=== PATIENT | female | born 1950 | race Caucasian/White ===

== ENCOUNTER 2016-06-10 12:37 | Emergency (ER) | payer OTHER ==
[~2016-06-10 12:37] MED LIST: ALBUTEROL HFA60 DOSE IN; ASPIRIN81 M1 PO; ATENOLOL25 MG PO; ATORVASTATIN CA20 MG PO; AZULFIDINE500 MG PO; BENZONATATE100 MG PO; DICYCLOMINE HCL20 MG PO; DUONEB IN; ESTRADIOL2 MG PO; FUROSEMIDE20 MG PO; KLOR-CON 1010 MEQ PO; OMEPRAZOLE20 MG PO; XANAX0.5 MG PO; [UNRECOGNIZED DRUG - SUPPLY]
--- NOTE | 2016-06-10 14:05 | DIAGNOSTIC IMAGING REPORT ---
PROCEDURE: XR CHEST 2 VIEW INDICATION: HYPOXIA AND HX OF COPD TECHNIQUE: PA and lateral views. COMPARISON: Chest 12/23/2014 and 01/22/2011 FINDINGS: New right lower lobe infiltrate. The left lung base is unchanged from 2010. Heart and mediastinum are normal. Thorax is normal. IMPRESSION: 1. New right lower lobe infiltrate. Results discussed with Dr. Venkatesh Hicks at 02:00 p.m.
--- NOTE | 2016-06-10 16:45 | DIAGNOSTIC IMAGING REPORT ---
PROCEDURE: CT ABDOMEN/PELVIS W/O CONTRAST INDICATION: ABDO PAIN, HEMATURIA, TECHNIQUE: Noncontrast axial images were obtained of the entire abdomen and pelvis with sagittal and coronal reformations. COMPARISON: None. FINDINGS: ABDOMEN: 1.5 mm proximal left ureteral calculus with mild left hydronephrosis. There are two nonobstructing left renal calculi (two and 3 mm). Mild bibasilar scarring. Heart size is normal. Cholecystectomy. Liver, pancreas, spleen and left adrenal gland are normal. 1.9 cm right adrenal mass measures -11 Hounsfield units. Mild atherosclerosis of the aorta. Mild descending colon diverticulosis. PELVIS: Normal appendix. Mild to moderate sigmoid diverticulosis. Hysterectomy. 3 cm left ovarian cyst. Normal bladder. Moderate degenerative changes of the spine . IMPRESSION: 1. 1.5 mm proximal left ureteral calculus with mild left hydronephrosis 2. Nonobstructing left renal calculi 3. Cholecystectomy and hysterectomy 4. 1.9 cm right adrenal adenoma 5. 2 cm left ovarian cyst 6. Diverticulosis 7. Results discussed with Dr. Parrish All CT scans at this facility use dose modulation, iterative reconstruction, and/or weight-based dosing when appropriate to reduce radiation dose to as low as reasonably achievable.
--- NOTE | 2016-06-10 17:09 | ED CLINICAL REPORT ---
Clinical Report - Physicians/Mid Levels [facility] [address] [place] [address] 06/10/2016 12:38 Patient: GABRIEL ESPINAL Time Seen: 1303. Arrived- By private vehicle. Historian- patient. HISTORY OF PRESENT ILLNESS Chief Complaint: ABDOMINAL PAIN. This started today and is still present (unchanged). It was abrupt in onset and has been constant but is not gone now. At its maximum, severity described as moderate. When seen in the E.D., severity described as moderate. Modifying factors. Not worsened by anything. Not relieved by anything. No radiation. It is described as located in the left upper quadrant and the left flank. No nausea, loss of appetite, vomiting or diarrhea. No additional abdominal pain. No recent travel. Similar symptoms previously: None. Recent medical care: Not recently seen/assessed. REVIEW OF SYSTEMS No chest pain or skin rash. All systems otherwise negative, except as recorded above. PAST HISTORY See nurses notes. Medications: Atorvastatin Calcium Oral 20 mg, daily. Atenolol Oral 50 mg, daily. Albuterol Sulfate HFA Inhalation (Aerosol Solution 108 (90 Base) mcg/act), 4x a day as needed. ALPRAZolam Oral 0.5 mg, 2x a day as needed. Benzonatate Oral 100 mg, 3x a day. Comp-Air Elite Comp Neb System. Dicyclomine HCl Oral 20 mg, 2x a day. Estradiol Oral (Tablet 2 mg) 1 tablet. Furosemide Oral 20 mg, 2x a day as needed. Ipratropium-Albuterol Inhalation (Solution 0.5-2.5 (3) mg/3mL). Klor-Con M10 Oral (Tablet Extended Release 10 meq) 1 tablet (takes with Lasix, when she takes the Lasix). Omeprazole Oral 20 mg, 2x a day. SulfaSALAzine Oral 500 mg, 2x a day. Allergies: Unknown. SOCIAL HISTORY Never smoker. No alcohol use or drug use. No recent travel. Is a local resident. ADDITIONAL NOTES The nursing notes have been reviewed. PHYSICAL EXAM Vital Signs: 06/10/2016 12:43 BP: 140/54. HR: 62. RR: 18. O2 saturation: 86%. Temp: 97.6 F. Pain level now: 0/10. Oxygen saturation normal. Appearance: Alert. Oriented X3. No acute distress. (nontoxic). Eyes: Pupils equal, round and reactive to light. Eyes normal inspection. ENT: Ears normal. Nose normal. Pharynx normal. Neck: Normal inspection. Neck supple. CVS: Normal heart rate and rhythm. Heart sounds normal. Pulses normal. Respiratory: No respiratory distress. Breath sounds normal. Chest nontender. No rales, rhonchi or wheezes. Abdomen: Soft and nontender. Bowel sounds normal. No organomegaly. No mass. Back: Normal inspection. Mild CVA tenderness on the left. Skin: Skin warm and dry. Normal skin color. No rash. Normal skin turgor. Extremities: Extremities exhibit normal ROM. No lower extremity edema. Neuro: Oriented X 3. No motor deficit. No sensory deficit. LABS, X-RAYS, AND EKG EKG: No acute ischemia. Normal sinus rhythm. Rate: 63. Normal P waves. Normal SVETA. Normal QRS complex. Nondiagnostic Q waves in lead III. Normal axis. Normal ST and T waves, QT and QTc. The study has been interpreted contemporaneously by me. The study has been independently viewed by me. The EKG appears to be a good tracing. Chest X-ray: (PROCEDURE: XR CHEST 2 VIEW INDICATION: HYPOXIA AND HX OF COPD TECHNIQUE: PA and lateral views. COMPARISON: Chest 12/23/2014 and 01/22/2011 FINDINGS: New right lower lobe infiltrate. The left lung base is unchanged from 2010. Heart and mediastinum are normal. Thorax is normal. IMPRESSION: 1. New right lower lobe infiltrate.). The X-rays were independently viewed by me and interpreted by the radiologist. The X-rays were discussed with the radiologist (Via phone and fax). Abdominal CT: PROCEDURE: CT ABDOMEN/PELVIS W/O CONTRAST INDICATION: ABDO PAIN, HEMATURIA, TECHNIQUE: Noncontrast axial images were obtained of the entire abdomen and pelvis with sagittal and coronal reformations. COMPARISON: None. FINDINGS: ABDOMEN: 1.5 mm proximal left ureteral calculus with mild left hydronephrosis. There are two nonobstructing left renal calculi (two and 3 mm). Mild bibasilar scarring. Heart size is normal. Cholecystectomy. Liver, pancreas, spleen and left adrenal gland are normal. 1.9 cm right adrenal mass measures -11 Hounsfield units. Mild atherosclerosis of the aorta. Mild descending colon diverticulosis. PELVIS: Normal appendix. Mild to moderate sigmoid diverticulosis. Hysterectomy. 3 cm left ovarian cyst. Normal bladder. Moderate degenerative changes of the spine . IMPRESSION: 1. 1.5 mm proximal left ureteral calculus with mild left hydronephrosis 2. Nonobstructing left renal calculi 3. Cholecystectomy and hysterectomy 4. 1.9 cm right adrenal adenoma 5. 2 cm left ovarian cyst 6. Diverticulosis. Study type: abdomen and pelvis. Abdominal CT performed without contrast. The study was independently viewed by me and interpreted by the radiologist. The study was discussed with the radiologist (via phone and pacs). Laboratory Tests: UA-Culture if indicated: (KELSEY: 06/10/2016 15:20) ( AkgRcvd 06/10/2016 15:34) Final results Test Result Flag Units (Reference) URINE COLOR BROWN URINE APPEARANCE TURBID URINE GLUCOSE NEGATIVE (NEGATIVE) URINE BILIRUBIN ICTOTEST NEGATIVE (NEGATIVE) URINE KETONE TRACE (NEGATIVE) URINE SPECIFIC GRAVITY 1.025 (1.010-1.030) URINE PH 5.5 (5.0-8.0) URINE PROTEIN 2+ (NEGATIVE) URINE UROBILINOGEN 1.0 EU/dL (0.2-1.0) URINE NITRITE NEGATIVE (NEGATIVE) URINE BLOOD 3+ (NEGATIVE) URINE LEUK ESTERASE TRACE (NEGATIVE) URINE RBC >100 rbc/hpf (0-1) URINE WBC 1-3 wbc/hpf (0-1) URINE EPITHELIAL CELLS 0-1 EPI/hpf (0-5) URINE BACTERIA FEW (1+) (NONE SEEN) URINE COMMENT CULTURE INDICATED 2+ AMORPHOUS URATESURINE CULTURES ARE SET-UP BASED ON THE FOLLOWING CRITERIA:POSITIVE NITRITEPOSITIVE LEUKOCYTE ESTERASEGREATER THAN 10 WHITE BLOOD CELLSMODERATE (2+) OR GREATER BACTERIA CBC w Diff: (KELSEY: 06/10/2016 14:00) ( [facility] [place] [facility]16) Final results Test Result Flag Units (Reference) WHITE BLOOD COUNT 9.8 K/uL (4.5-11.5) RED BLOOD COUNT 4.65 M/uL (4.00-5.20) HEMOGLOBIN 13.9 gm/dL (12.0-16.0) HEMATOCRIT 42.2 % (36.0-46.0) MEAN CELL VOLUME 91 fL (80-100) MEAN CORPUSCULAR HGB 30 pg (26-34) MEAN CORPUSCULAR HGB CONC 33 g/dL (31-37) RED CELL DISTRIBUTION WIDTH 14.6 % (11.6-14.8) PLATELET COUNT 279 K/uL (150-400) NEUTROPHIL % 82.0 H % (50-75) LYMPH % 11.4 L % (25-40) MONO % 6.2 % (3-14) EOSINOPHIL % 0.3 % (0-4) BASOPHIL % 0.1 % (0-2) CMP: (KELSEY: 06/10/2016 14:00) ( MsgRcvd 06/10/2016 14:36) Final results Test Result Flag Units (Reference) GLUCOSE 159 H mg/dL (70-110) BUN 10 mg/dL (7-18) CREATININE 0.6 mg/dL (0.6-1.3) Estimated GFR >60 mL/min Estimated GFR- >60 mL/min Note: Persistent reduction over 3 months in eGFR<60 mL/min/1.73 m2 defines CKD. Patients with eGFR values>=60 mL/min/1.73 m2 may also have CKD if evidence ofpersistent proteinuria. Additional information may be foundat [email or web address].org. SODIUM 142 mmol/L (136-145) POTASSIUM 3.8 mmol/L (3.5-5.1) CHLORIDE 105 mmol/L (98-107) CARBON DIOXIDE 30 mmol/L (21-32) CALCIUM 8.7 mg/dL (8.5-10.1) TOTAL PROTEIN 7.1 g/dL (6.4-8.2) ALBUMIN 3.5 g/dL (3.3-5.0) BILIRUBIN, TOTAL 0.4 mg/dL (0.0-1.0) ALKALINE PHOSPHATASE 95 U/L (46-116) AST (SGOT) 26 U/L (15-37) ALT (SGPT) 24 U/L (12-78) LIPASE 102 U/L (73-393) TROPONIN I <0.05 ng/mL (0.00-1.5) TROPONIN REFERENCE RANGE:<0.1 NEGATIVE0.1-1.5 INDETERMINANT>1.5 POSITIVE . PROGRESS AND PROCEDURES Course of Care: the patient is a pleasant 65-year-old female presenting for evaluation of abdominal pain. Based the patient's history and examination, differential diagnosis includes pneumonia,COPD exacerbation, pancreatitis, or pyelonephritis. Patient with reported hypoxia and round to the hospital. Patient is noted to have a history of needing home oxygen therapy. Workup has been ordered. Patient is agreeable to the treatment plan. The patient's workup was significant for the findings above. Patient with large amount of blood noted on urinalysis. No signs of infection on the patient's urinalysis. Because of the otherwise unremarkable workup but positive urinalysis for large amount of blood, stone is favored. I reviewed the patient's past imaging history and the patient does not have a CT scan on file with us recentlyfor evaluation of stones. CT scan has been ordered for evaluation of the patient's likely ureterolithiasis. Patient is agreeable to the plan. Patient's workup was remarkable for the findings above. Patient with high likelihood of spontaneous passing of the stone based on size. Discussed with the patient her findings here in the emergency department including workup and diagnosis as well as home care, follow-up, and return precautions. All questions have been answered. The patient expressed understanding of these instructions and was agreeable to them. Of note, the patient's chest x-ray showed potential right-sided pneumonia however CT scan indicates the patient with scarring bilaterally. Patient's hypoxia was also temporarily noted likely because of pain medication provided by EMS and getting her situated in the ambulance. Patient without any signs of respiratory distress while here in the emergency department. No other symptoms to indicate that the patient has a pneumonia. Disposition: Discharged. Condition: good. CLINICAL IMPRESSION 06/10/2016 15:40 O2 saturation: 93%. 06/10/2016 15:37 BP: 144/74. HR: 58. O2 saturation: 93%. Moderate nausea with vomiting (acute). Gross hematuria (acute). Blood pressure normal. Oxygen saturation: borderline. patient with COPD and normally on O2 at home. Ureterolithiasis (single stone) in the left ureter with hydronephrosis. Hypoxia (acute resolved). INSTRUCTIONS Warnings: GENERAL WARNINGS: Return or contact your physician immediately if your condition worsens or changes unexpectedly, if not improving as expected, or if other problems arise. SPECIFICALLY, return if you develop pain, fever, vomiting, the inability to keep fluids down, blood in vomitus, blood in diarrhea, fainting or lightheadedness. Your Current Medications: CONTINUE TAKING THE FOLLOWING MEDICATIONS: Albuterol Sulfate HFA Inhalation : Aerosol Solution 108 (90 Base) mcg/act, 4x a day, prn. ALPRAZolam Oral : 0.5 mg 2x a day, prn. Atenolol Oral : 50 mg daily. Atorvastatin Calcium Oral : 20 mg daily. Benzonatate Oral : 100 mg 3x a day. Comp-Air Elite Comp Neb System*. Dicyclomine HCl Oral : 20 mg 2x a day. Estradiol Oral : Tablet 2 mg, 1 tablet. Furosemide Oral : 20 mg 2x a day, prn. Ipratropium-Albuterol Inhalation : Solution 0.5-2.5 (3) mg/3mL. Klor-Con M10 Oral : Tablet Extended Release 10 meq, 1 tablet, takes with Lasix, when she takes the Lasix. Omeprazole Oral : 20 mg 2x a day. SulfaSALAzine Oral : 500 mg 2x a day. Prescription Medications: Zofran (orally disintegrating tablets) 4 mg: take 1 orally every 8 hours as needed for nausea and vomiting. Dispense ten (10). No refill. Substitution is permissible. Motrin 600 mg tablets: take 1 tablet orally every 6 hours as needed for pain or stiffness. Dispense thirty (30). No refill. Substitution is permissible. Percocet 5 mg/325 mg: take 1 tablet orally every 6 hours as needed for pain. Dispense twenty (20). No refill. Substitution is permissible. Follow-up: Return to the emergency department as needed. Follow up with your doctor in three days. Reason for referral: recheck today's concerns. Summary of care provided to patient via paper. Screening today revealed the patient's blood pressure to be in the normal range. The patient should follow up with a primary care provider for blood pressure management. Understanding of the discharge instructions verbalized by patient and family. Follow-up with: Gonzalo Marquez MD, Urology, , [address] [facility] , [place], [address] Follow up in one week. Reason for referral: recheck today's concerns. Summary of care provided to patient via paper. (Electronically signed by Venkatesh Parrish Dr. 06/13/2016 5:56)
--- NOTE | 2016-06-10 17:09 | ED ORDER SUMMARY ---
..... Patient: GABRIEL ESPINAL OrderSheet [facility] VisitID: [id number] [address] [place] [address] 65y, F Registration Date/Time: 06/10/2016 ORDER SHEET Weight: 99.7 kg Allergies: Unknown GENERAL ORDERS: Chuck Boner (Continuous) (hypoxia) (12:41 06/10/2016 Lucas Chen) (13:36 Elmer R.N.) UA-Culture if indicated Urgent (12:42 06/10/2016 Lucas Chen) (Ack 12:43 Bernardo) (15:41 Gisella R.N.) CBC w Diff Urgent (12:42 06/10/2016 Lucas Chen) (Ack 12:43 Bernardo) (14:07 Elmer R.N.) CMP Urgent (12:42 06/10/2016 Lucas Chen) (Ack 12:43 Bernardo) (14:07 Elmer R.N.) Lipase Urgent (12:42 06/10/2016 Lucas Chen) (Ack 12:43 Bernardo) (14:07 Elmer R.N.) Pulse oximeter (12:42 06/10/2016 Lucas Chen) (13:36 Elmer R.N.) Oxygen (2 L/min) (NC) (12:42 06/10/2016 Lucas Chen) (13:36 Elmer R.N.) Chest 2V Urgent (13:15 06/10/2016 Lucas Chen) (Ack 13:37 Nata) (14:07 Elmer R.N.) Troponin-I Urgent (13:15 06/10/2016 Lucas Chen) (Ack 13:39 Nata) (14:07 Elmer R.N.) CT Abd/Pel wo Cont Urgent (16:11 06/10/2016 Lucas Chen) (16:29 Annette) MEDICATION ORDERS: IV FLUIDS: IV Saline Lock (12:42 06/10/2016 Lucas Chen) (13:35 Keon R.N.) IV NS : initial bolus 1000 mL (1000 mL/hr), then none - for X1 (NOW) (15:23 06/10/2016 Lucas Chen) (15:41 Gisella Larson) Toradol IV 30 mg (NOW) (16:59 06/10/2016 Lucas Chen) (17:03 Gisella Larson) ORDER SHEET NOTES: [Electronically signed by Ena Albarran R.N. (18:13 06/10/2016)] [Electronically signed by Venkatesh Parrish Dr. (05:56 06/13/2016)] [Electronically locked/signed by Ena Albarran R.N. (18:13 06/10/2016)]
--- NOTE | 2016-06-10 17:09 | ED ORDER SUMMARY ---
..... Patient: GABRIEL ESPINAL OrderSheet [facility] VisitID: [id number] [address] [place] [address] 65y, F Registration Date/Time: 06/10/2016 ORDER SHEET Weight: 99.7 kg Allergies: Unknown GENERAL ORDERS: Tunnel Heading Inspector (Continuous) (hypoxia) (12:41 06/10/2016 Lucas Chen) (13:36 Elmer R.N.) UA-Culture if indicated Urgent (12:42 06/10/2016 Lucas Chen) (Ack 12:43 Bernardo) (15:41 Gisella R.N.) CBC w Diff Urgent (12:42 06/10/2016 Lucas Chen) (Ack 12:43 Bernardo) (14:07 Elmer R.N.) CMP Urgent (12:42 06/10/2016 Lucas Chen) (Ack 12:43 Bernardo) (14:07 Elmer R.N.) Lipase Urgent (12:42 06/10/2016 Lucas Chen) (Ack 12:43 Bernrado) (14:07 Elmer R.N.) Pulse oximeter (12:42 06/10/2016 Lucas Chen) (13:36 Elmer R.N.) Oxygen (2 L/min) (NC) (12:42 06/10/2016 Lucas Chen) (13:36 Elmer R.N.) Chest 2V Urgent (13:15 06/10/2016 Lucas Chen) (Ack 13:37 Nata) (14:07 Elmer R.N.) Troponin-I Urgent (13:15 06/10/2016 Lucas Chen) (Ack 13:39 Nata) (14:07 Elmer R.N.) CT Abd/Pel wo Cont Urgent (16:11 06/10/2016 Lucas Chen) (16:29 Annette) MEDICATION ORDERS: IV FLUIDS: IV Saline Lock (12:42 06/10/2016 Lucas Chen) (13:35 Keon R.N.) IV NS : initial bolus 1000 mL (1000 mL/hr), then none - for X1 (NOW) (15:23 06/10/2016 Lucas Chen) (15:41 Gisella Larson) Toradol IV 30 mg (NOW) (16:59 06/10/2016 Lucas Chen) (17:03 Gisella Larson) ORDER SHEET NOTES: [Electronically signed by Ena Albarran R.N. (18:13 06/10/2016)] [Electronically signed by Venkatesh Parrish Dr. (05:56 06/13/2016)] [Electronically locked/signed by Ena Albarran R.N. (18:13 06/10/2016)]
--- NOTE | 2016-06-10 17:09 | ED NURSING NOTES ---
Clinical Report - [facility] [address] [place] [address] 06/10/2016 12:38 [id number] Triage time 1247 PM. Acuity: LEVEL 3. Chief Complaint: ABDOMINAL PAIN, NAUSEA, VOMITING and DIARRHEA. Alert. No acute distress. SEPSIS SCREEN: Sepsis Screen. Negative (no infection suspected/documented). TIM COMA SCORE: [place] Coma Scale: 15- eyes open spontaneously (4); best verbal response- oriented x 4 (5); best motor response- obeys commands (6). --13:09 Pushpa Hilton R.N. 12:43 06/10/16. BP: 140/54. HR: 62. RR: 18. O2 saturation: 86% on room air. Temp: 97.6 F. Pain level now: 0/10. --13:09 Pushpa Hilton R.N. Weight: 99.7 kg. Height/Length: 64 inches. BMI: 37.8. --12:43 Pushpa Hilton R.N. Medications Albuterol Sulfate HFA Inhalation (Aerosol Solution 108 (90 Base) mcg/act), 4x a day as needed. ALPRAZolam Oral 0.5 mg, 2x a day as needed. Benzonatate Oral 100 mg, 3x a day. Comp-Air Elite Comp Neb System. Dicyclomine HCl Oral 20 mg, 2x a day. Estradiol Oral (Tablet 2 mg) 1 tablet. Furosemide Oral 20 mg, 2x a day as needed. Ipratropium-Albuterol Inhalation (Solution 0.5-2.5 (3) mg/3mL). Klor-Con M10 Oral (Tablet Extended Release 10 meq) 1 tablet (takes with Lasix, when she takes the Lasix). Omeprazole Oral 20 mg, 2x a day. SulfaSALAzine Oral 500 mg, 2x a day. --12:56 Pushpa Hilton R.N. Atenolol Oral 50 mg, daily. --12:58 Hilton, Pushpa, R.N. Atorvastatin Calcium Oral 20 mg, daily. --12:58 Pushpa Hilton R.N. Allergies Unknown. --12:56 Pushpa Hilton R.N. Medication/allergy information source: the patient. --13:09 Pushpa Hilton R.N. History Arrived by private vehicle. Historian: patient. Accompanied by family. Primary physician (Carla TAMAYO). ( Pt states has been feeling ill since after Easter with the "stomach virus" This morning woke up with severe abdominal upper left epigastric pain, diarrhea (x3), feeling weak, nauseous. Denies fevers, trouble urinating, does admit pain is radiating to left side only. Called her PCP which was told to go to the clinic in [place], which got treated with Dilaudid, zofran , GI cocktail with no relief. Brought here by EMS for further evaluation). This started today. She has had nausea, vomiting, diarrhea and abdominal pain. Last oral intake by patient was dinner yesterday. Treatment ENVIRONMENTAL COMPLIANCE SPECIALIST: (dilaudid, zofran, GI coctail). See EMS report. PAST MEDICAL HX: Immunizations: up-to-date. The patient has had a hysterectomy. SOCIAL HX: Current every day heavy tobacco smoker (cigarette)- less than 1 pack per day. No alcohol use or drug use. No recent travel. No infectious disease exposure. No known contact with a sick individual. ABUSE ASSESSMENT: No report of abuse. SELF HARM ASSESSMENT: A self harm assessment was performed. The patient answered "no" to the question "Do you have thoughts of harming or killing yourself?" and "Have you recently had thoughts about harming or killing others?". FALL RISK ASSESSMENT: Fall risk assessment completed. No fall risk identified. NUTRITIONAL RISK ASSESSMENT: The nutritional risk assessment revealed no deficiencies. FUNCTIONAL ASSESSMENT: Functional assessment: no impairments noted. LEARNING NEEDS ASSESSMENT: The learning needs assessment revealed no barriers. SKIN INTEGRITY ASSESSMENT: Skin integrity risk assessment completed. No skin integrity risk identified. --13:09 Pushpa Hilton R.N. PROBLEMS: COPD - Chronic Obstructive Pulmonary Disease. "stomach problems". TIA - Transient Ischemic Attack. --12:59 Pushpa Hilton R.N. Hypertension [RuleOut]. CVA - Cerebrovascular Accident [RuleOut]. --12:59 Pushpa Hilton R.N. ADDITIONAL SURGERIES: Cholecystectomy. Hysterectomy. --12:59 Pushpa Hilton R.N. Interventions ID band on patient. --13:09 Pushpa Hilton R.N. PHYSICAL ASSESSMENT To room via stretcher. GENERAL / NEURO / PSYCH: Alert. Oriented X 4. Appears in pain. HEENT: Mucous membranes are pink. RESPIRATORY: Respirations not labored. Decreased breath sounds in the right mid-lung posteriorly; decreased breath sounds in the left lung base and mid-lung posteriorly. CVS: Cardiac rhythm: sinus bradycardia. Capillary refill less than 2 seconds and is greater than 2 seconds. GI / : The patient has had nausea. Abdominal distention. Abdomen soft and nontender. Rebound tenderness. Guarding present. SKIN: Skin is warm and dry. --13:11 Pushpa Hilton R.N. NURSING PROGRESS NOTES 12:49 06/10/2016 Site #2 started via IV in the left upper arm with an 20g angiocath. Blood drawn: rainbow set. Labeled in the presence of the patient and sent to the lab (Done via EMS). --13:14 Pushpa Hilton R.N. 13:02 06/10/2016 Site #1 accessed indwelling PIV line in the right hand using a 22g needle (Done at [facility]- infiltrated upon arrival, D/C). --13:13 Pushpa Hilton R.N. The initial plan of care for this patient has been created This plan of care was discussed with the patient. Oxygen administered by nasal cannula at 2 liters. Monitoring of patient in place. Patient gowned. Warming measures: blanket applied. Reassurance given. GI / : The patient reports nausea. The patient reports vomiting. The patient reports abdominal pain. Two patient identifiers checked. Call light placed in reach. Side rails up x 2. Bed placed in lowest position. --13:18 Pushpa Hilton R.N. EKG time: (13:02). EKG was performed by a tech and shown to the ED physician. --13:26 Darlyn Greenfielda <<STRICKEN ENTRY-- 13:07 06/10/2016 Site #3 started prior to arrival by EMS via IV in the left antecubital space with an 20g angiocath. --13:33 Liz Salmeron R.N. --END STRIKE>> Other. duplicate entry --13:35 Liz Salmeron R.N. 13:09 06/10/2016 Site #1 removed upon admission. Catheter intact. Bandaid applied (hand puffy). --13:34 Liz Salmeron R.N. 13:15 06/10/16. BP: 130/68. HR: 62. RR: 15. O2 saturation: 92% on nasal cannula at 2 liters/minute. Pain level now: 010. --13:40 Pushpa Hilton R.N. Cardiac rhythm: normal sinus rhythm. --13:40 Pushpa Hilton R.N. Patient transported to radiology. (1320 PM). --13:40 Pushpa Hilton R.N. Patient returned. (1324 PM). --14:08 Pushpa Hilton R.N. Cardiac rhythm: sinus bradycardia. Monitoring of patient in place. Reassurance given. The patient is calm and resting quietly. Overall patient status is the same- she states feels better. GI / : Denies nausea, diarrhea or vomiting. Two patient identifiers checked. Call light placed in reach. --14:10 Pushpa Hilton R.N. 14:08 06/10/16. BP: 137/64 (regular adult cuff) taken on the right arm, via an automated monitor, while lying. HR: 56. RR: 16. O2 saturation: 92% on nasal cannula at 2 liters/minute. Pain level now: 03/26. --14:10 Pushpa Hilton R.N. Care transferred and report given (GAY Sutherland). --15:03 Pushpa Hilton R.N. Clean catch urine collected with return of orange-colored urine, sediment noted; odor is foul-smelling; sample sent to lab for urinalysis and culture. Specimen labeled in the presence of the patient. ( Late Entry - Introduction to pt and family. IVF complete. PT assisted to the bathroom, gait steady and no assistance needed. Standby only. Urine collected and it is dark and foul smelling, pt states she hasn't drank any fluids since last night. ER Provider aware of urine collection and color. Pt started on some IVF NS and placed back on the monitor. Trial run on room air saturation, pt down to 86%. States she only wears 2 liters at night time. No oxygen during the day. Smoke 1-1.5 ppd.). --15:41 Ena Albarran R.N. 15:37 06/10/16. BP: 144/74. HR: 58. O2 saturation: 93%. Pain level now 0/10. --15:41 Ena Albarran R.N. 15:41 06/10/2016 Started bag #1 1000 mL IV Fluids IV NS (Saline); at 1000 mL/hr over 1 hour(s) via site #2 via IV pump. IV patency established. IV site checked: no pain, redness, or swelling. IV flushed thoroughly pre- and post-medication administration. --15:41 Ena Albarran R.N. ( Pt has returned from CT, ICE chips ok, per ER Provider.). --16:34 Ena Albarran R.N. 17:03 06/10/2016 Toradol IVP 30 mg given over 2 minute(s) via site #2. IV patency established. IV site checked: no pain, redness, or swelling. IV flushed thoroughly pre- and post-medication administration. IVP given by RN. --17:03 Ena Albarran R.N. 17:14 06/10/2016 IV Fluids IV NS Discontinued: bag #1 discontinued. Total amount infused: 900 mL. IV patency established. IV site checked: no pain, redness, or swelling. IV flushed thoroughly. --17:14 Ena Albarran R.N. DISPOSITION / DISCHARGE 17:14 06/10/16. BP: 157/65. HR: 56. RR: 18. O2 saturation: 90%. Pain level now 0/10. --17:14 Ena Albarran R.N. Condition at departure: improved and stable. FALL RISK ASSESSMENT: Fall risk assessment completed. No fall risk identified. --17:14 Ena Albarran R.N. 17:20 06/10/2016 Site #2 removed upon discharge. --17:20 Ena Albarran R.N. ( strainer and cup provided to pt, instructed to urinate in the hat and strain urine, catch a stone and can take it to PCP if she likes.). --17:20 Ena Albarran R.N. Departure time: 17:20 Jun 10 2016. --17:20 Ena Albarran R.N. Locked/Released at 06/10/2016 18:13 by Ena Albarran R.N.
--- NOTE | 2016-06-13 05:56 | ED MED RECONCILIATION SUMMARY ---
Patient: GABRIEL ESPINAL Medication Reconciliation Report [facility] VisitID: [id number] [address] [place] [address] 65y, F Registration Date/Time: 06/10/2016 Weight: 99.7 kg Height/Length: 64 in. BMI: 37.8 ALLERGIES: Unknown The patient's Home Medications are listed below: CONTINUE TAKING THE FOLLOWING MEDICATIONS: Albuterol Sulfate HFA Inhalation (108 (90 Base) mcg/act), 4x a day ALPRAZolam Oral 0.5 mg, 2x a day Atenolol Oral 50 mg, daily Atorvastatin Calcium Oral 20 mg, daily Benzonatate Oral 100 mg, 3x a day Comp-Air Elite Comp Neb System Dicyclomine HCl Oral 20 mg, 2x a day Estradiol Oral (2 mg) 1 tablet Furosemide Oral 20 mg, 2x a day Ipratropium-Albuterol Inhalation (0.5-2.5 (3) mg/3mL) Klor-Con M10 Oral (10 meq) 1 tablet, takes with Lasix, when she takes the Lasix Omeprazole Oral 20 mg, 2x a day SulfaSALAzine Oral 500 mg, 2x a day The source(s) of the original Home Medication information: patient The following Medications were given to the patient in the Emergency Department: IV NS IV Fluids bolus 0, then 1000 mL/hr, administered: 06/10/2016 3:41:00 PM Toradol [IVP] IVP 30 mg, administered: 06/10/2016 5:03:00 PM The following Medications were prescribed to the patient: Zofran (orally disintegrating tablets) 4 mg: take 1 orally every 8 hours as needed for nausea and vomiting. Dispense ten (10). No refill. Substitution is permissible. -- Venkatesh Parrish Dr. Motrin 600 mg tablets: take 1 tablet orally every 6 hours as needed for pain or stiffness. Dispense thirty (30). No refill. Substitution is permissible. -- Venkatesh Parrish Dr. Percocet 5 mg/325 mg: take 1 tablet orally every 6 hours as needed for pain. Dispense twenty (20). No refill. Substitution is permissible. -- Venkatesh Parrish Dr.
--- NOTE | 2016-06-13 05:56 | ED MAR SUMMARY ---
..... Medication Administration Record [facility] [address] [place] [address] Patient: GABRIEL ESPINAL Visit ID: [id number] 65y, F Weight: 99.7 kg Height/Length: 64 in BMI: 37.8 ALLERGIES: Unknown Start 15:41 06/10/2016 Ena Albarran R.N., Stop 17:14 06/10/2016 Ena Albarran R.N. Medication Administered: IV NS (SALINE), Dose: IV Fluids over 1 hour(s), Rate: 1000 mL/hr, Dispensed: 1000 mL bag, Site: #2 left upper arm. Medication Ordered: IV NS : initial bolus 1000 mL (1000 mL/hr), then none - for X1 (NOW). Given 17:03 06/10/2016 Ena Albarran R.N. Medication Administered: TORADOL [IVP], Dose: 30 mg IVP over 2 minute(s), Site: #2 left upper arm. Medication Ordered: Toradol IV 30 mg (NOW).
--- NOTE | 2016-06-13 05:56 | ED MED RECONCILIATION SUMMARY ---
Patient: GABRIEL ESPINAL Medication Reconciliation Report [facility] VisitID: [id number] [address] [place] [address] 65y, F Registration Date/Time: 06/10/2016 Weight: 99.7 kg Height/Length: 64 in. BMI: 37.8 ALLERGIES: Unknown The patient's Home Medications are listed below: CONTINUE TAKING THE FOLLOWING MEDICATIONS: Albuterol Sulfate HFA Inhalation (108 (90 Base) mcg/act), 4x a day ALPRAZolam Oral 0.5 mg, 2x a day Atenolol Oral 50 mg, daily Atorvastatin Calcium Oral 20 mg, daily Benzonatate Oral 100 mg, 3x a day Comp-Air Elite Comp Neb System Dicyclomine HCl Oral 20 mg, 2x a day Estradiol Oral (2 mg) 1 tablet Furosemide Oral 20 mg, 2x a day Ipratropium-Albuterol Inhalation (0.5-2.5 (3) mg/3mL) Klor-Con M10 Oral (10 meq) 1 tablet, takes with Lasix, when she takes the Lasix Omeprazole Oral 20 mg, 2x a day SulfaSALAzine Oral 500 mg, 2x a day The source(s) of the original Home Medication information: patient The following Medications were given to the patient in the Emergency Department: IV NS IV Fluids bolus 0, then 1000 mL/hr, administered: 06/10/2016 3:41:00 PM Toradol [IVP] IVP 30 mg, administered: 06/10/2016 5:03:00 PM The following Medications were prescribed to the patient: Zofran (orally disintegrating tablets) 4 mg: take 1 orally every 8 hours as needed for nausea and vomiting. Dispense ten (10). No refill. Substitution is permissible. -- Venkatesh Parrish Dr. Motrin 600 mg tablets: take 1 tablet orally every 6 hours as needed for pain or stiffness. Dispense thirty (30). No refill. Substitution is permissible. -- Venkatesh Parrish Dr. Percocet 5 mg/325 mg: take 1 tablet orally every 6 hours as needed for pain. Dispense twenty (20). No refill. Substitution is permissible. -- Venkatesh Parrish Dr.
--- NOTE | 2016-06-13 05:56 | ED DISCHARGE INSTRUCTIONS ---
Patient: GABRIEL ESPINAL General Instructions [facility] VisitID: [id number] [address] [place] [address] 65y, F Registration Date/Time: 06/10/2016 06/10/2016 15:40 O2 saturation: 93%. 06/10/2016 15:37 BP: 144/74. HR: 58. O2 saturation: 93%. Moderate nausea with vomiting (acute). Gross hematuria (acute). Blood pressure normal. Oxygen saturation: borderline. patient with COPD and normally on O2 at home. Ureterolithiasis (single stone) in the left ureter with hydronephrosis. Hypoxia (acute resolved). INSTRUCTIONS Warnings: GENERAL WARNINGS: Return or contact your physician immediately if your condition worsens or changes unexpectedly, if not improving as expected, or if other problems arise. SPECIFICALLY, return if you develop pain, fever, vomiting, the inability to keep fluids down, blood in vomitus, blood in diarrhea, fainting or lightheadedness. Your Current Medications: CONTINUE TAKING THE FOLLOWING MEDICATIONS: Albuterol Sulfate HFA Inhalation : Aerosol Solution 108 (90 Base) mcg/act, 4x a day, prn. ALPRAZolam Oral : 0.5 mg 2x a day, prn. Atenolol Oral : 50 mg daily. Atorvastatin Calcium Oral : 20 mg daily. Benzonatate Oral : 100 mg 3x a day. Comp-Air zoojoo.BE Comp Neb System*. Dicyclomine HCl Oral : 20 mg 2x a day. Estradiol Oral : Tablet 2 mg, 1 tablet. Furosemide Oral : 20 mg 2x a day, prn. Ipratropium-Albuterol Inhalation : Solution 0.5-2.5 (3) mg/3mL. Klor-Con M10 Oral : Tablet Extended Release 10 meq, 1 tablet, takes with Lasix, when she takes the Lasix. Omeprazole Oral : 20 mg 2x a day. SulfaSALAzine Oral : 500 mg 2x a day. Prescription Medications: Zofran (orally disintegrating tablets) 4 mg: take 1 orally every 8 hours as needed for nausea and vomiting. Dispense ten (10). No refill. Substitution is permissible. Motrin 600 mg tablets: take 1 tablet orally every 6 hours as needed for pain or stiffness. Dispense thirty (30). No refill. Substitution is permissible. Percocet 5 mg/325 mg: take 1 tablet orally every 6 hours as needed for pain. Dispense twenty (20). No refill. Substitution is permissible. Follow-up: Return to the emergency department as needed. Follow up with your doctor in three days. Reason for referral: recheck today's concerns. Summary of care provided to patient via paper. Screening today revealed the patient's blood pressure to be in the normal range. The patient should follow up with a primary care provider for blood pressure management. Understanding of the discharge instructions verbalized by patient and family. Follow-up with: Gonzalo Marquez MD, Urology, , [address] [facility] , [place], [id number] Follow up in one week. Reason for referral: recheck today's concerns. Summary of care provided to patient via paper. ADDITIONAL INFORMATION Kidney Stone (W/ Colic) The sharp cramping pain and nausea/vomiting that you have is due to a small stone which has formed in the kidney and is now passing down a narrow tube (ureter) on its way to your bladder. Once it reaches your bladder, the pain will stop. The stone may pass in your urine stream in one piece. [The size may be 1/16" to 1/4" (1-6mm)]. Or, the stone may also break up into karen fragments which you may not even notice. Once you have had a kidney stone, you are at risk for developing another one in the future. Home Care: Drink plenty of fluids (at least 8 to 10 glasses of water a day). Most stones will pass on their own, but may take from a few hours to a few days. Sometimes the stone is too large to pass by itself and special methods will have to be used to remove the stone. Each time you urinate, do so in a jar. Pour the urine from the jar through the strainer and into the toilet. Continue doing this until 24 hours after your pain stops. By then, if there was a kidney stone, it should pass from your bladder. Some stones dissolve into sand-like particles and pass right through the strainer. In that case, you wont ever see a stone. Save any stone that you find in the strainer and bring it to your doctor for analysis. It may be possible to prevent certain types of stones from forming. Therefore, it is important to know what kind of stone you have. Try to stay as active as possible since this will help the stone pass. Do not stay in bed unless your pain prevents you from getting up. You may notice a red, pink or brown color to your urine. This is normal while passing a kidney stone. Follow Up with your doctor or return to this facility if the pain lasts more than 48 hours. Get Prompt Medical Attention if any of the following occur: Pain that is not controlled by the medicine given Repeated vomiting or unable to keep down fluids Weakness, dizziness or fainting Fever of 100.4F (38C) or higher, or as directed by your healthcare provider Passage of solid red or brown urine (can't see through it) or urine with lots of blood clots Unable to pass urine for 8 hours and increasing bladder pressure Blood In The Urine Blood in the urine ("hematuria") has many possible causes. If it occurs after an injury (such as a car accident or fall), it is most often a sign of bruising to the kidney or bladder. Common medical causes of blood in the urine include urinary tract infection, kidney stone, inflammation, tumors, or certain other diseases of the kidney or bladder. Menstruation can cause blood to appear in the urine sample, although it is not coming from the urinary tract. If only a trace amount of blood is present, it will show up on the urine test, even though the urine may be yellow and not pink or red. This may occur with any of the above conditions, as well as heavy exercise or high fever. In this case, your doctor may want to repeat the urine test on another day. This will show if the blood is still present. If so, then other tests can be done to find out the cause. Home Care: If your urine does not appear bloody (pink, brown or red) then you do not need to restrict your activity in any way. If you can see blood in your urine, rest and avoid heavy exertion until your next exam. Do not use aspirin or anti-inflammatory medicine like ibuprofen (Motrin, Advil) or naproxen (Naprosyn, Aleve). These thin the blood and may increase bleeding. Follow Up with your doctor or as advised by our staff. If you were injured and had blood in your urine, you should have a repeat urine test in 1-2 days. Contact your doctor or return to this facility for this test. [NOTE: A radiologist will review any X-rays that were taken. We will notify you of any new findings that may affect your care.] Get Prompt Medical Attention if any of the following occur: Bright red blood or blood clots in the urine (if a new symptom) Weakness, dizziness or fainting New groin, abdominal or back pain Fever of 100.4F (38C) or higher, or as directed by your healthcare provider Repeated vomiting Bleeding from nose, gums or easy bruising Ondansetron Oral disintegrating tablet What is this medicine? ONDANSETRON (on SHAYY se ana) is used to treat nausea and vomiting caused by chemotherapy. It is also used to prevent or treat nausea and vomiting after surgery. How should I use this medicine? These tablets are made to dissolve in the mouth. Do not try to push the tablet through the foil backing. With dry hands, peel away the foil backing and gently remove the tablet. Place the tablet in the mouth and allow it to dissolve, then swallow. While you may take these tablets with water, it is not necessary to do so. Talk to your project manager industrial regarding the use of this medicine in children. Special care may be needed. What side effects may I notice from receiving this medicine? Side effects that you should report to your doctor or health personal care service provider as soon as possible: allergic reactions like skin rash, itching or hives, swelling of the face, lips, or tongue breathing problems dizziness fast or irregular heartbeat feeling faint or lightheaded, falls fever and chills swelling of the hands and feet tightness in the chest Side effects that usually do not require medical attention (report to your doctor or health personal care service provider if they continue or are bothersome): constipation or diarrhea headache What may interact with this medicine? Do not take this medicine with any of the following medications: -apomorphine -cisapride -dofetilide -dronedarone -pimozide -thioridazine -ziprasidone This medicine may also interact with the following medications: -carbamazepine -phenytoin -rifampicin -tramadol -other medicines that prolong the QT interval (cause an abnormal heart rhythm) What if I miss a dose? If you miss a dose, take it as soon as you can. If it is almost time for your next dose, take only that dose. Do not take double or extra doses. Where should I keep my medicine? Keep out of the reach of children. Store between 2 and 30 degrees C (36 and 86 degrees F). Throw away any unused medicine after the expiration date. What should I tell my health care provider before I take this medicine? They need to know if you have any of these conditions: heart disease history of irregular heartbeat liver disease low levels of magnesium or potassium in the blood an unusual or allergic reaction to ondansetron, granisetron, other medicines, foods, dyes, or preservatives or trying to get breast-feeding What should I watch for while using this medicine? Check with your doctor or health personal care service provider as soon as you can if you have any sign of an allergic reaction. Ibuprofen Oral tablet What is this medicine? IBUPROFEN (eye BYOO proe fen) is a non-steroidal anti-inflammatory drug (NSAID). It is used for dental pain, fever, headaches or migraines, osteoarthritis, rheumatoid arthritis, or painful monthly periods. It can also relieve minor aches and pains caused by a cold, flu, or sore throat. How should I use this medicine? Take this medicine by mouth with a glass of water. Follow the directions on the prescription label. Take this medicine with food if your stomach gets upset. Try to not lie down for at least 10 minutes after you take the medicine. Take your medicine at regular intervals. Do not take your medicine more often than directed. A special MedGuide will be given to you by the pharmacist with each prescription and refill. Be sure to read this information carefully each time. Talk to your project manager industrial regarding the use of this medicine in children. Special care may be needed. What side effects may I notice from receiving this medicine? Side effects that you should report to your doctor or health personal care service provider as soon as possible: allergic reactions like skin rash, itching or hives, swelling of the face, lips, or tongue black or bloody stools, blood in the urine or in vomit breathing problems changes in vision chest pain general ill feeling or flu-like symptoms nausea or vomiting redness, blistering, peeling or loosening of the skin, including inside the mouth slurred speech or weakness on one side of the body stomach pain unexplained weight gain or swelling unusually weak or tired yellowing of eyes or skin Side effects that usually do not require medical attention (report to your doctor or health personal care service provider if they continue or are bothersome): constipation or diarrhea dizziness gas or heartburn stomach upset What may interact with this medicine? Do not take this medicine with any of the following medications: cidofovir ketorolac methotrexate pemetrexed This medicine may also interact with the following medications: alcohol aspirin diuretics lithium other drugs for inflammation like prednisone warfarin What if I miss a dose? If you miss a dose, take it as soon as you can. If it is almost time for your next dose, take only that dose. Do not take double or extra doses. Where should I keep my medicine? Keep out of the reach of children. Store at room temperature between 15 and 30 degrees C (59 and 86 degrees F). Keep container tightly closed. Throw away any unused medicine after the expiration date. What should I tell my health care provider before I take this medicine? They need to know if you have any of these conditions: asthma cigarette smoker drink more than 3 alcohol containing drinks a day heart disease or circulation problems such as heart failure or leg edema (fluid retention) high blood pressure kidney disease liver disease stomach bleeding or ulcers an unusual or allergic reaction to ibuprofen, aspirin, other NSAIDS, other medicines, foods, dyes, or preservatives or trying to get breast-feeding What should I watch for while using this medicine? Tell your doctor or healthcare professional if your symptoms do not start to get better or if they get worse. This medicine does not prevent heart attack or stroke. In fact, this medicine may increase the chance of a heart attack or stroke. The chance may increase with longer use of this medicine and in people who have heart disease. If you take aspirin to prevent heart attack or stroke, talk with your doctor or health personal care service provider. Do not take other medicines that contain aspirin, ibuprofen, or naproxen with this medicine. Side effects such as stomach upset, nausea, or ulcers may be more likely to occur. Many medicines available without a prescription should not be taken with this medicine. This medicine can cause ulcers and bleeding in the stomach and intestines at any time during treatment. Ulcers and bleeding can happen without warning symptoms and can cause . To reduce your risk, do not smoke cigarettes or drink alcohol while you are taking this medicine. You may get drowsy or dizzy. Do not drive, use machinery, or do anything that needs mental alertness until you know how this medicine affects you. Do not stand or sit up quickly, especially if you are an older patient. This reduces the risk of dizzy or fainting spells. This medicine can cause you to bleed more easily. Try to avoid damage to your teeth and gums when you brush or floss your teeth. Oxycodone Hydrochloride, Acetaminophen Oral tablet What is this medicine? ACETAMINOPHEN; OXYCODONE (a set a SHERRIE stewart fen; ox i KOE done) is a pain reliever. It is used to treat mild to moderate pain. How should I use this medicine? Take this medicine by mouth with a full glass of water. Follow the directions on the prescription label. Take your medicine at regular intervals. Do not take your medicine more often than directed. Talk to your project manager industrial regarding the use of this medicine in children. Special care may be needed. Patients over 65 years old may have a stronger reaction and need a smaller dose. What side effects may I notice from receiving this medicine? Side effects that you should report to your doctor or health personal care service provider as soon as possible: allergic reactions like skin rash, itching or hives, swelling of the face, lips, or tongue breathing difficulties, wheezing confusion light headedness or fainting spells severe stomach pain yellowing of the skin or the whites of the eyes Side effects that usually do not require medical attention (report to your doctor or health personal care service provider if they continue or are bothersome): dizziness drowsiness nausea vomiting What may interact with this medicine? alcohol antihistamines barbiturates like amobarbital, butalbital, butabarbital, methohexital, pentobarbital, phenobarbital, thiopental, and secobarbital benztropine drugs for bladder problems like solifenacin, trospium, oxybutynin, tolterodine, hyoscyamine, and methscopolamine drugs for breathing problems like ipratropium and tiotropium drugs for certain stomach or intestine problems like propantheline, homatropine methylbromide, glycopyrrolate, atropine, belladonna, and dicyclomine general anesthetics like etomidate, ketamine, nitrous oxide, propofol, desflurane, enflurane, halothane, isoflurane, and sevoflurane medicines for depression, anxiety, or psychotic disturbances medicines for sleep muscle relaxants naltrexone narcotic medicines (opiates) for pain phenothiazines like perphenazine, thioridazine, chlorpromazine, mesoridazine, fluphenazine, prochlorperazine, promazine, and trifluoperazine scopolamine tramadol trihexyphenidyl What if I miss a dose? If you miss a dose, take it as soon as you can. If it is almost time for your next dose, take only that dose. Do not take double or extra doses. Where should I keep my medicine? Keep out of the reach of children. This medicine can be abused. Keep your medicine in a safe place to protect it from theft. Do not share this medicine with anyone. Selling or giving away this medicine is dangerous and against the law. Store at room temperature between 20 and 25 degrees C (68 and 77 degrees F). Keep container tightly closed. Protect from light. This medicine may cause accidental overdose and if it is taken by other adults, children, or pets. Flush any unused medicine down the toilet to reduce the chance of harm. Do not use the medicine after the expiration date. What should I tell my health care provider before I take this medicine? They need to know if you have any of these conditions: brain tumor Crohn's disease, inflammatory bowel disease, or ulcerative colitis drink more than 3 alcohol containing drinks per day drug abuse or addiction head injury heart or circulation problems kidney disease or problems going to the bathroom liver disease lung disease, asthma, or breathing problems an unusual or allergic reaction to acetaminophen, oxycodone, other opioid analgesics, other medicines, foods, dyes, or preservatives or trying to get breast-feeding What should I watch for while using this medicine? Tell your doctor or health personal care service provider if your pain does not go away, if it gets worse, or if you have new or a different type of pain. You may develop tolerance to the medicine. Tolerance means that you will need a higher dose of the medication for pain relief. Tolerance is normal and is expected if you take this medicine for a long time. Do not suddenly stop taking your medicine because you may develop a severe reaction. Your body becomes used to the medicine. This does NOT mean you are addicted. Addiction is a behavior related to getting and using a drug for a non-medical reason. If you have pain, you have a medical reason to take pain medicine. Your doctor will tell you how much medicine to take. If your doctor wants you to stop the medicine, the dose will be slowly lowered over time to avoid any side effects. You may get drowsy or dizzy. Do not drive, use machinery, or do anything that needs mental alertness until you know how this medicine affects you. Do not stand or sit up quickly, especially if you are an older patient. This reduces the risk of dizzy or fainting spells. Alcohol may interfere with the effect of this medicine. Avoid alcoholic drinks. There are different types of narcotic medicines (opiates) for pain. If you take more than one type at the same time, you may have more side effects. Give your health care provider a list of all medicines you use. Your doctor will tell you how much medicine to take. Do not take more medicine than directed. Call emergency for help if you have problems breathing. The medicine will cause constipation. Try to have a bowel movement at least every 2 to 3 days. If you do not have a bowel movement for 3 days, call your doctor or health personal care service provider. Do not take Tylenol (acetaminophen) or medicines that have acetaminophen with this medicine. Too much acetaminophen can be very dangerous. Many nonprescription medicines contain acetaminophen. Always read the labels carefully to avoid taking more acetaminophen. You have been given the following additional information: Kidney Stone W/ Colic Hematuria Ondansetron Oral disintegrating tablet Ibuprofen Oral tablet Oxycodone Hydrochloride, Acetaminophen Oral tablet (Electronically signed by Venkatesh Parrish Dr. 06/13/2016 5:56)
--- NOTE | 2016-06-13 05:56 | ED MAR SUMMARY ---
..... Medication Administration Record [facility] [address] [place] [address] Patient: GABRIEL ESPINAL Visit ID: [id number] 65y, F Weight: 99.7 kg Height/Length: 64 in BMI: 37.8 ALLERGIES: Unknown Start 15:41 06/10/2016 Ena Albarran R.N., Stop 17:14 06/10/2016 Ena Albarran R.N. Medication Administered: IV NS (SALINE), Dose: IV Fluids over 1 hour(s), Rate: 1000 mL/hr, Dispensed: 1000 mL bag, Site: #2 left upper arm. Medication Ordered: IV NS : initial bolus 1000 mL (1000 mL/hr), then none - for X1 (NOW). Given 17:03 06/10/2016 Ena Albarran R.N. Medication Administered: TORADOL [IVP], Dose: 30 mg IVP over 2 minute(s), Site: #2 left upper arm. Medication Ordered: Toradol IV 30 mg (NOW).
== END 2016-06-10 17:30 | disposition home or self-care (01) ==
LOC: ED SRH 12:37
DX: N13.2 Hydronephrosis with renal and ureteral calculous obstruction (principal); R31.0 Gross hematuria; R11.2 Nausea with vomiting, unspecified; J44.9 Chronic obstructive pulmonary disease, unspecified; R09.02 Hypoxemia; Z99.81 Dependence on supplemental oxygen; Z79.51 Long term (current) use of inhaled steroids; Z79.899 Other long term (current) drug therapy
CPT/HCPCS: 90004; 90100; 90469; 90616; 92235; 95059

== ENCOUNTER 2016-07-21 10:01 | Outpatient (CLI) | payer OTHER ==
--- NOTE | 2016-07-21 11:38 | DIAGNOSTIC IMAGING REPORT ---
PROCEDURE: CT LOW-DOSE LUNG CA SCREENING CLINICAL INDICATION: TOBACCO ABUSE DISORDER TECHNIQUE: Low-dose helical CT images of the lungs without contrast were obtained and reconstructed at 2.5 mm intervals. MIP reformations in coronal and sagittal planes were created. Radiation dose 1.38 mGy. COMPARISON: Oldest available comparison: Chest x-ray 01/22/2011. FINDINGS: NODULES: None OTHER LUNG FINDINGS: Bullous emphysema. AIRWAY: Branches normally without narrowing or endobronchial nodule. PLEURA: No effusions, thickening, or pneumothorax. AORTA AND GREAT VESSELS: Normal caliber, mild atherosclerotic calcification. PULMONARY ARTERIES: Normal. . HEART AND PERICARDIUM: Borderline cardiomegaly. LYMPH NODES: No enlarged nodes visible. THORACIC SPINE: No suspicious lesion. Mild degenerative changes. CHEST WALL: Normal. VISUALIZED UPPER ABDOMEN: Normal. Cholecystectomy. IMPRESSION: 1. No evidence of pulmonary nodules 2. Bullous emphysema 3. Category 1, negative. Recommend annual screening with LDCT in 12 months. 4. Borderline cardiomegaly. All CT scans at this facility use dose modulation, iterative reconstruction, and/or weight-based dosing when appropriate to reduce radiation dose to as low as reasonably achievable.
== END 2016-07-21 23:00 ==
LOC: CT SRH 10:01
DX: J43.9 Emphysema, unspecified (principal); I51.7 Cardiomegaly